=== PATIENT | female | born 1995 | race Caucasian/White ===

== ENCOUNTER 2017-05-14 13:52 | Emergency (ER) | payer BC ==
--- NOTE | 2017-05-14 16:34 | UC ---
UC General HPI - HPI Summary HPI Summary: Patient has been seeing Dr. Raymond--He is no longer seeing patients she is currently looking for MD needs her Prozac for OCD refilled last dose about 5 days ago---Is getting headaches - History of Current Complaint Chief Complaint: UCMedRefill Stated Complaint: MEDICATION REFILL Time Seen by Provider: 05/14/17 16:18 Hx Obtained From: Patient Hx Last Menstrual Period: 3 weeks ago Onset/Duration: Gradual Onset Timing: Constant Onset Severity: Mild Current Severity: Mild - Allergy/Home Medications Allergies/Adverse Reactions: Allergies Allergy/AdvReac Type Severity Reaction Status Date / Time No Known Allergies Allergy Verified 05/14/17 16:40 PMH/Surg Hx/FS Hx/Imm Hx Previously Healthy: No Psychological History: Other Other Psychological History: OCD - Surgical History Surgical History: None - Family History Known Family History: Positive: None - Social History Occupation: Employed Full-time - Teacher Lives: With Family Alcohol Use: Occasionally Substance Use Type: None Smoking Status (MU): Never Smoked Tobacco Review of Systems Constitutional: Negative Skin: Negative Eyes: Negative ENT: Negative Respiratory: Negative Cardiovascular: Negative Gastrointestinal: Negative Genitourinary: Negative Motor: Negative Neurovascular: Negative Musculoskeletal: Negative Neurological: Headache - usual with fluoxetine when she misses doses Psychological: Negative Is Patient Immunocompromised?: No All Other Systems Reviewed And Are Negative: Yes Physical Exam Triage Information Reviewed: Yes Appearance: Well-Appearing, No Pain Distress, Well-Nourished Vital Signs Reviewed: Yes Eye Exam: Normal Eyes: Positive: Conjunctiva Clear ENT Exam: Normal ENT: Positive: Normal ENT inspection, Hearing grossly normal, TMs normal. Negative: Nasal congestion, Nasal drainage, Trismus, Muffled/hoarse voice Dental Exam: Normal Neck exam: Normal Neck: Positive: Supple, Nontender, No Lymphadenopathy Respiratory Exam: Normal Respiratory: Positive: Chest non-tender, No respiratory distress, No accessory muscle use Cardiovascular Exam: Normal Cardiovascular: Positive: RRR, Pulses Normal, Brisk Capillary Refill Musculoskeletal Exam: Normal Musculoskeletal: Positive: Strength Intact, ROM Intact, No Edema Neurological Exam: Normal Neurological: Positive: Alert, Muscle Tone Normal Psychological Exam: Normal Psychological: Positive: Other: - denties HI/SI Skin Exam: Normal Course/Dx - Course Course Of Treatment: refill Prozac for 1 month---follow with mental health clinic and or Lesley chavis for referral assistance - Differential Dx - Multi-Symptom Differential Diagnoses: Other - OCD Med refill Provider Diagnoses: Refil Prozac for OCD Discharge - Discharge Plan Condition: Stable Disposition: HOME Prescriptions: FLUoxetine CAP* [Prozac CAP*] 20 mg PO DAILY #90 cap Referrals: [facility] [Outside] - 1 Week
[2017-05-14 16:41] VITALS: BP 123/66
== END 2017-05-14 16:51 | disposition home or self-care (01) ==
LOC: UCCORT 13:52
DX: F42.9 Obsessive-compulsive disorder, unspecified (principal); Z76.0 Encounter for issue of repeat prescription
CPT/HCPCS: 99212; G0463

== ENCOUNTER 2017-09-18 15:58 | Emergency (ER) | payer BC ==
[2017-09-18 16:52] VITALS: BP 125/70
--- NOTE | 2017-09-18 17:33 | UC ---
Skin Complaint HPI - HPI Summary HPI Summary: 22 y/o female presents to the urgent care accompany by mother c/o rash in her both breast since Monday09/16/2017. Pt states she came out of the shower and noticed the rash. Rash itchiness if touched. Pt has taking Benadryl 50mg last night w/o any improvement. Pt denies, drainage or pain from the rash. Pt denies fever, SOB, throat tightness, abdominal pain N/V/D. She doesn't recall wearing a new bra or clothing, detergent, body lotion or being outside of the country recently. - History of Current Complaint Chief Complaint: UCSkin Time Seen by Provider: 09/18/17 17:31 Stated Complaint: RASH Hx Obtained From: Patient, Family/Commercial Property Manager - mother Hx Last Menstrual Period: on BCP- LMP 2 weeks ago ?: No Onset/Duration: Gradual Onset, Lasting Days - 2 days, Still Present Skin Exposure Onset/Duration: Days Ago Timing: Constant Onset Severity: Mild Current Severity: Moderate Pain Intensity: 0 Pain Scale Used: 0-10 Numeric Location: Discrete - B/L breast Character: Pruritus Aggravating Factor(s): Touch Alleviating Factor(s): Nothing Associated Signs & Symptoms: Negative: Nausea, Fever, Chills, Throat Tightening , Drainage, Tenderness, Red Streaks Related History: Other: - Unknown - Allergy/Home Medications Allergies/Adverse Reactions: Allergies Allergy/AdvReac Type Severity Reaction Status Date / Time No Known Allergies Allergy Verified 09/18/17 16:45 Review of Systems Constitutional: Negative Skin: Rash - B/L breast, Other - itchiness Eyes: Negative ENT: Negative Respiratory: Negative Cardiovascular: Negative Gastrointestinal: Negative Genitourinary: Negative Motor: Negative Neurovascular: Negative Musculoskeletal: Negative Neurological: Negative Psychological: Negative Is Patient Immunocompromised?: No All Other Systems Reviewed And Are Negative: Yes PMH/Surg Hx/FS Hx/Imm Hx Previously Healthy: Yes - Pt denies PMHX - Surgical History Surgical History: Yes Surgery Procedure, Year, and Place: RIGHT wrist sx- adonis/screws placed - Family History Known Family History: Positive: Hypertension - Social History Occupation: Employed Full-time Lives: With Family Alcohol Use: Rare Substance Use Type: None Smoking Status (MU): Never Smoked Tobacco - Immunization History Most Recent Influenza Vaccination: no 2017 Vaccination Up to Date: Yes Physical Exam Triage Information Reviewed: Yes Vital Signs: Initial Vital Signs Temp 97.6 F 09/18/17 16:45 Pulse 80 09/18/17 16:45 Resp 16 09/18/17 16:45 BP 125/70 09/18/17 16:45 Pulse Ox 100 09/18/17 16:45 - Additional Comments Vital Signs Reviewed: Yes General: well developed, well nourished female sitting in the examining table w/ o any apparent distress Eye Exam: Normal Eyes: Positive: Conjunctiva Clear - PERRLA, EOMI, fundi grossly normal ENT: Positive: Normal ENT inspection, Hearing grossly normal, Pharynx normal, TMs normal Neck: Positive: Supple, Nontender, No Lymphadenopathy Respiratory: Positive: Chest non-tender, Lungs clear, Normal breath sounds, No respiratory distress Cardiovascular: Positive: RRR, No Murmur, Pulses Normal, Brisk Capillary Refill Abdomen Description: Positive: Nontender, No Organomegaly, Soft. Negative: CVA Tenderness (R), CVA Tenderness (L) Bowel Sounds: Positive: Present Musculoskeletal: Positive: Strength Intact, ROM Intact, No Edema Neurological: Positive: Alert, Muscle Tone Normal Psychological Exam: Normal Skin: Positive: rashes - Positive scattered discrete erythematous papules on both breast spearing the areola. No definite pattern, non tender to palpation, no swelling or drainage observed. Course/Dx - Course Course Of Treatment: 22 y/o female presents to the urgent care accompany by mother c/o rash in her both breast since Monday09/16/2017. Pt states she came out of the shower and noticed the rash. Rash itchiness if touched. Pt has taking Benadryl 50mg last night w/o any improvement. Pt denies, drainage or pain from the rash. Pt denies fever, SOB, throat tightness, abdominal pain N/V/ D. She doesn't recall wearing a new bra or clothing, detergent, body lotion or being outside of the country recently.Hx obtained. PT with Positive scattered discrete erythematous papules on both breast spearing the areola. No definite pattern, non tender to palpation, no swelling or drainage observed , no axillary lymphadeonapathy on axamination. Pt's rash is unspecified , probably contact dermatitis. PT Rx Prednisone PO taper dose, Triamcinolone topical cream and to contiue taking Benadryl PO for pruritus. Mother and Pt advised if not improvement or worsening of symptoms to return to f/u with [facility] Rico for further treatment.Mother and PT understood and agreed with D/ C instructions - Differential Diagnoses - Skin Complaint Differential Diagnoses: Allergic Reaction, Contact Dermatitis, Drug Rash, Local Allergic Reaction, Urticaria, Other - bed bugs - Diagnoses Provider Diagnoses: 1- unspecified acute rash Discharge - Discharge Plan Condition: Stable Disposition: HOME Prescriptions: predniSONE TAB* [Deltasone TAB*] 20 mg PO DAILY #11 tab Triamcinolone 0.1% CREAM(NF) [Kenalog Cream 0.1%(NF)] 1 applic TOPICAL BID #1 tube Patient Education Materials: Acute Rash (ED) Referrals: Annabel Limon [Medical Doctor] - 2 Days Peg Bhatt MD [Primary Care Provider] - 2 Days Additional Instructions: 1-Please apply medication as directed. 2-Take Prednisone PO as directed and continue taking Benadryl 25mg PO TID you have at home. 3-If symptoms do not improve or worsen please f/u with your PCP on [facility] in 2-3 days for further evaluation and treatment.
== END 2017-09-18 18:08 | disposition home or self-care (01) ==
LOC: UCCORT 15:58
DX: R21 Rash and other nonspecific skin eruption (principal)
CPT/HCPCS: 99212; G0463